=== PATIENT | male | born 1955 | race Caucasian/White ===

== ENCOUNTER 2020-11-02 09:46 | Emergency (ER) | payer MEDICARE ==
[~2020-11-02] VITALS: Ht 177.8 cm; Wt 72.0 kg
[2020-11-02] MEDS ORDERED: EPINEPHRINE SYRINGE 0.1 MG/ML, 10ML ONE (10:30)
[2020-11-02] MEDS ORDERED: DEXTROSE 5%, 100ML ONE (10:30)
[2020-11-02] MEDS ORDERED: SODIUM BICARB 8.4%, 50ML SYRINGE ONE (10:30)
[2020-11-02] MEDS ORDERED: CODE BLUE RESPONSE XX ONE (10:30)
[2020-11-02] MEDS ORDERED: EPINEPHRINE 1 MG/ML, 1ML ONE (10:30)
[2020-11-02] MEDS ORDERED: DEXTROSE 5%, 50ML ONE (10:30)
[2020-11-02] MEDS ORDERED: CALCIUM CHLORIDE 10%, 10ML SYR ONE (10:30)
--- NOTE | 2020-11-02 10:32 | NUR ---
LATE ENTRY FOR ARRIVAL AT 0943. BIB EMS FROM HOME, +ARREST, EMS INITIATED CPR, EST IO ACCESS X 2, GAVE 1MG EPI X 5 DOSES, 400MG AMIODARONE, 750ML NS, INTUBATED 8.0 ORAL ETT 23CM AT TEETH. 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 DR SHEIKH AT BEDSIDE. SEE CPR DATA SHEET FOR CODE EVENTS.
--- NOTE | 2020-11-02 10:40 | NUR ---
DAUGHTER, DIONISIO HUGHES PH [phone]
--- NOTE | 2020-11-02 11:55 | NUR ---
LATE ENTRY FOR EVENTS 1009 - 1038, PT REMAINS PEA, NO PALPABLE BP, NO SPON BREATHING. VENTILATOR AND EPI GTTS STOPPED AT [address] SHEIKH ORDER. HEART RHYTHM CONTINUED TO SLOW, PUPILS FIXED AND DILATED, NO SPON RESP NOTED. ASYSTOLE AT 1038 AND PT TIME OF CALLED BY DR SHEIKH AT 1038. DR SHEIKH SPOKE WITH PTS DAUGHTER, DIONISIO VIA PHONE AND ALSO WITH HIS SON, GILDA. EVENTS DISCUSSED AND QUESTIONS ANSWERED.
--- NOTE | 2020-11-02 11:58 | NUR ---
PT WAS DECLINED BY BOTH TISSUE AND DONOR NETWORK AND DECLINED CORONORS CASE BY CORONOR OFFICE. ALL LINES AND TUBES REMOVED. ID TAG ON RIGHT GREAT TOE, PT PLACED IN BODY BAG AND TAG PLACEDON OUTSIDE OF BAG. PTS DAUGHTER, SUMMER WILL CALL NURSING OPS LATER TODAY WITH MORTUARY NAME. NURSING OPS PHONE NUMBER GIVEN TO [facility]. BODY TAKEN TO [facility] BY NICKI, ED EMT
== END 2020-11-02 12:03 | disposition expired ==
LOC: ED 09:54
DX: I46.9 Cardiac arrest, cause unspecified (principal); R57.8 Other shock; K92.2 Gastrointestinal hemorrhage, unspecified; R00.1 Bradycardia, unspecified
CPT/HCPCS: 92950; 93005; 99285; J0171; 94002